=== PATIENT | male | born 2000 | race Caucasian/White ===

== ENCOUNTER 2021-03-09 18:34 | Emergency (ER) | payer BC ==
[~2021-03-09] VITALS: Ht 182.9 cm; Wt 73.0 kg
[2021-03-09 22:44] VITALS: BP 114/86
== END 2021-03-09 22:58 | disposition left against medical advice (07) ==
LOC: ER 18:34
DX: R60.0 Localized edema (principal); F41.9 Anxiety disorder, unspecified; Z98.890 Other specified postprocedural states
CPT/HCPCS: 99281

== ENCOUNTER 2021-03-10 12:42 | Emergency (ER) | payer BC ==
[~2021-03-10] VITALS: Ht 182.9 cm; Wt 75.0 kg
[2021-03-10] MEDS ORDERED: KETOROLAC 60MG/2ML VIAL IM ONE (14:45)
[2021-03-10 14:53] LABS: BASOPHILS % 0.5 % (0.0-2.0); EOSINOPHILS % 3.9 % (0.0-5.0); HEMATOCRIT. 34.5 % (42.0-52.0); HEMOGLOBIN. 11.7 g/dL (14.0-18.0); LYMPHOCYTES % 17.5 % (20.0-50.0); MEAN CORPUSCULAR HEMOGLOBIN 29.9 pg (28.0-32.0); MEAN CORPUSCULAR VOLUME 88.6 fL (80.0-94.0); MEAN PLATELET VOLUME 7.3 fl (7.4-10.4); MONOCYTES % 8.4 % (2.0-8.0); NEUTROPHILS % 69.7 % (40.0-76.0); PLATELET 254 x1000/uL (130-400); RED BLOOD CELL COUNT 3.89 mill/uL (4.7-6.1); RED CELL DISTRIBUTION WIDTH 12.4 % (11.6-14.6)
[2021-03-10 15:08] LABS: CHLORIDE 100 mEq/L (98-107)
[2021-03-10 15:51] LABS: CLARITY URINE CLEAR (CLEAR); COLOR URINE YELLOW (YELLOW); KETONES URINE NEGATIVE (NEGATIVE); LEUKOCYTE ESTERASE URINE NEGATIVE (NEGATIVE); NITRITE URINE NEGATIVE (NEGATIVE); OCCULT BLOOD URINE NEGATIVE (NEGATIVE); PROTEIN URINE NEGATIVE (NEGATIVE); SPECIFIC GRAVITY URINE 1.003 (1.005-1.030); UROBILINOGEN URINE 0.2 E.U./dL (0.2-1.0)
[2021-03-10 16:42] VITALS: BP 118/71
== END 2021-03-10 16:54 | disposition home or self-care (01) ==
LOC: ER 12:42
DX: R60.0 Localized edema (principal); N50.812 Left testicular pain; F17.290 Nicotine dependence, other tobacco product, uncomplicated; Z98.890 Other specified postprocedural states
CPT/HCPCS: 36415; 80053; 81003; 83880; 85025; 99283; 99406